=== PATIENT | female | born 1995 | race African-American/Black ===

== ENCOUNTER 2024-07-17 06:44 | Emergency (ER) | payer OTHER, SELFPAY ==
[2024-07-17 08:01] LABS: Influenza A by NAA Not Detected (NotDetected); Influenza B by NAA Not Detected (NotDetected); SARS-CoV-2 NAA Rapid Test Not Detected (NotDetected)
== END 2024-07-17 07:25 | disposition home or self-care (01) ==
LOC: ERS 06:44
DX: J06.9 Acute upper respiratory infection, unspecified (principal)
CPT/HCPCS: 99283